=== PATIENT | female | born 1970 | race Caucasian/White ===

== ENCOUNTER 2018-06-10 21:49 | Emergency (ER) | END 2018-06-11 01:57 | disposition home or self-care (01) ==

== ENCOUNTER 2018-08-12 15:34 | Emergency (ER) | END 2018-08-12 18:03 | disposition home or self-care (01) ==

== ENCOUNTER 2019-05-21 17:28 | Observation (INO) | payer OTHER ==
[~2019-05-21] VITALS: Ht 160 cm; Wt 65.0 kg
[~2019-05-21 17:28] MED LIST: ATEN-122; ATEN100T ORAL; DOXY100T20 PO; IBUP-1542 PO; METF500T24 ORAL; METH750T93 PO
[2019-05-21] MEDS ORDERED: NITROGLYCERIN 2% 1 GM OINT PKT TD STA (17:46)
[2019-05-21] MEDS ORDERED: NITROGLYCERIN (SL) 0.4 MG TAB SL PRN (18:00)
[2019-05-21] MEDS ORDERED: POTASSIUM CHLORIDE (SR) 20 MEQ TAB PO STA (19:48)
[2019-05-21] MEDS ORDERED: LABETALOL HCL 20MG INJ IV ONE (20:00)
[2019-05-21] MEDS ORDERED: ACETAMINOPHEN 325 MG TAB PO PRN (20:30)
[2019-05-21] MEDS ORDERED: ONDANSETRON 4 MG INJ IV PRN (20:30)
[2019-05-21 23:54] VITALS: BP 140/75; PULSE 82; RESP 18
[2019-05-22] VITALS: Ht 160 cm; Wt 65.0 kg
[2019-05-22] MEDS ORDERED: ACETAMINOPHEN 325 MG TAB PO PRN (02:00)
[2019-05-22] MEDS ORDERED: ONDANSETRON 4 MG INJ IV PRN (02:00)
[2019-05-22] MEDS ORDERED: GLUCOSE GEL 15 GRAM TUBE BUCCAL PRN (02:30)
[2019-05-22] MEDS ORDERED: GLUCOSE GEL 15 GRAM TUBE PO PRN ×2 (02:30)
[2019-05-22] MEDS ORDERED: GLUCAGON 1 MG INJ IM PRN (02:30)
[2019-05-22] MEDS ORDERED: DEXTROSE 50% 50 ML SYRINGE IV PRN ×2 (02:30)
[2019-05-22 03:42] VITALS: BP 148/79; RESP 18
[2019-05-22 04:00] VITALS: PULSE 78
[2019-05-22] MEDS: INSULIN ASPART [NOVOLOG] 3 ML PEN SC SCH ×4 (05:00→17:00)
[2019-05-22 07:22] VITALS: BP 144/77; PULSE 75; RESP 20
[2019-05-22] MEDS ORDERED: ASPIRIN 81 MG TAB PO SCH (09:00)
[2019-05-22] MEDS ORDERED: ATENOLOL 100 MG TAB PO SCH (09:00)
[2019-05-22] MEDS ORDERED: ATORVASTATIN 10 MG TAB PO SCH (09:00)
[2019-05-22] MEDS ORDERED: AMLODIPINE 5 MG TAB PO SCH (09:00)
[2019-05-22 11:35] VITALS: BP 165/85; PULSE 88; RESP 20
[2019-05-22] MEDS ORDERED: REGADENOSON 0.4 MG/5 ML SYG ONE (12:52)
[2019-05-22 15:29] VITALS: BP 152/86; PULSE 80; RESP 20
[2019-05-23] MEDS ORDERED: ACCU-CHEK XX SCH (02:00)
== END 2019-05-22 17:50 | disposition home or self-care (01) ==
LOC: E/R 17:28 → 6WM 23:56
PROVIDERS: ADMIT Legal Medicine; ATTEND Legal Medicine
DX: R07.89 Other chest pain (principal); I10 Essential (primary) hypertension; E11.9 Type 2 diabetes mellitus without complications; Z79.84 Long term (current) use of oral hypoglycemic drugs; Z83.3 Family history of diabetes mellitus
CPT/HCPCS: 71045; 78452; 80048; 80053; 80061; 82550; 82553; 82962; 84484; 85025; 93005; 93017; 93306; A9500; A9505; J1815; J2785; Z7500; Z7610; 36415; G0378